=== PATIENT | male | born 1955 | race Caucasian/White ===

== ENCOUNTER → 2017-01-24 15:29 | Outpatient (CLI) | payer MEDICARE | END | disposition home or self-care (01) | LOC: D.CT 15:29 | DX: I73.9 Peripheral vascular disease, unspecified (principal) ==

== ENCOUNTER → 2017-01-30 07:28 | Outpatient (CLI) | payer MEDICARE | END | disposition home or self-care (01) | LOC: D.MRI 07:28 | DX: M25.561 Pain in right knee (principal) ==

== ENCOUNTER 2018-08-27 07:44 | Day surgery (SDC) | payer MEDICARE ==
[~2018-08-27] VITALS: Ht 188 cm; Wt 124.7 kg
[2018-08-27 08:18] LABS: ANION GAP 14.6 mmol/L (8-16); CALCIUM 9.3 mg/dL (8.5-10.1); CARBON DIOXIDE 27.5 mmol/L (21.0-32.0); CREATININE - SERUM 1.3 mg/dL (0.6-1.3); POTASSIUM - SERUM 4.1 mmol/L (3.5-5.1)
[2018-08-27 08:31] VITALS: BP 171/92; Ht 188 cm; Wt 124.7 kg
[2018-08-27 08:31] LABS: HEMATOCRIT 43.7 % (42.0-54.0); HEMOGLOBIN 15.6 g/dL (13.5-17.5); MCH 32.3 pg (26.0-34.0); MCHC 35.7 g/dL (31.0-37.0); MCV 90.5 fL (80.0-100.0); MEAN PLATELET VOLUME 9.7 fL (7.4-10.4); RBC 4.83 10x6/uL (4.20-6.10); RDW 13.3 % (11.5-14.5); WBC 12.5 10x3/uL (4.8-10.8)
[2018-08-27] MEDS ORDERED: LISINOPRIL-HCT1 EAC7 PO (08:46)
[2018-08-27] MEDS ORDERED: JANUMET XR 50-1 EACH PO (08:47)
[2018-08-27] MEDS ORDERED: NORVASC2.5 MG PO (08:48)
[2018-08-27] MEDS ORDERED: LIPITOR20 MG PO (08:49)
--- NOTE | 2018-08-27 14:50 | OP ---
PATIENT NAME: KUSH CAMPBELL MEDICAL RECORD: [id number] :59 LOCATION:D.OPS ADMISSION DATE: SURGEON: MARGIE BRAVO MD DATE OF OPERATION: 08/27/2018 PREOPERATIVE DIAGNOSIS: History of ascending colon polyp. POSTOPERATIVE DIAGNOSIS: History of ascending colon polyp. PROCEDURES: 1. Total colonoscopy to cecum. 2. Hot biopsy forceps polypectomy times 1. SURGEON: Margie Bravo MD FISCAL CLERK: None. BLOOD LOSS: Minimal. ANESTHESIA: IV sedation. COMPLICATIONS: None. The reason for the anesthesia staff being present during the procedure includes the need for airway manipulation, which was necessary during the operative procedure. ENDOSCOPIC COURSE: The patient was conveyed to endoscopy suite electively on 08/27/2018. IV sedation was induced by the anesthesia staff. The patient was placed in the [place] position. Digital rectal examination was performed. A colonoscope was inserted through the anus. It was easily advanced to the cecum. Upon withdrawal, I irrigated and aspirated extensively. The prep was adequate. I utilized normal imaging as well as narrow band imaging. One polyp was noted in the ascending colon and this was removed in its entirety utilizing the hot biopsy forceps polypectomy technique. This was a 1.2 cm flat polyp. I then slowly withdrew the endoscope. I irrigated and aspirated extensively. I dragged the folds. The pullback was greater than a 20-minute pullback. A retroflexed view was obtained in the rectum. The patient has enlarged internal hemorrhoids. I then unretroflexed the scope and removed it under direct vision. I will see the patient in my office in 2-3 weeks. I will plan for the next colonoscopy to take place in the GI lab in 1 year. TRANSINT:[id number] Voice Confirmation ID: [id number] DOCUMENT ID: [id number] MARGIE BRAVO MD at 1450 CC: MALCOLM QUIGLEY MD, MADHAVI KEN MD and HSREYA ESTEVEZ DO [id number] DICTATION DATE: 08/27/18 1138 MUD CLEANER OPERATOR: 08/27/18 1223 [facility] 08/27/18 [place] [address]
--- NOTE | 2018-08-28 11:00 | HP ---
PATIENT: KUSH CAMPBELL MEDICAL RECORD: [id number] ACCOUNT: [id number] LOCATION:[place] : 59 ADMISSION DATE: 08/27/18 PCP: MADHAVI KEN MD HISTORY AND PHYSICAL EXAMINATION CHIEF COMPLAINT: Colon polyp. HISTORY OF PRESENT ILLNESS: The patient has a complex colon polyp involving the ascending colon. It was a flat polyp ranging in size from 2-3 cm. The center was slightly depressed. The patient underwent an endoscopic mucosal resection of the lesion, which was partially removed using a snare. The Rebeca ink was applied for tattooing. The pathology was that of a tubular adenoma with no high-grade dysplasia or malignancy present. He had no rectal bleeding, no abdominal pain. HOME MEDICINES: Norvasc, Lipitor, lisinopril, hydrochlorothiazide, as well as metformin. The patient was on a blood thinner due to some stents in his lower extremities and he has been off blood thinner for some time now. SOCIAL HISTORY: A 84-coeu-hhbh history. PAST MEDICAL AND SURGICAL HISTORY: Hypertension as well as noninsulin dependent diabetes mellitus. ALLERGIES: No known drug allergies. PHYSICAL EXAMINATION: GENERAL: The patient does not appear acutely ill. He does not appear chronically ill. VITAL SIGNS: Reviewed. EARS: External ears appear normal. EYES: Extraocular movements are intact. NECK: Trachea is midline. CHEST: No intercostal retractions. IMPRESSION: History of a tubular adenoma of the ascending colon. PLAN: Colonoscopy. Possible endoscopic mucosal resection, possible polypectomy utilizing argon plasma licensing director. TRANSINT:[id number] Voice Confirmation ID: [id number] DOCUMENT ID: [id number] MARGIE BRAVO MD at 1100 CC: MALCOLM QUIGLEY MD, MADHAVI KEN MD and SHREYA ESTEVEZ DO [id number] DICTATION DATE: 08/27/18 1040 [employer] NETWORK ENGINEER: 08/27/18 1048 [facility] 08/27/18 [place] [id number]
== END 2018-08-27 13:02 | disposition home or self-care (01) ==
LOC: D.OPS 07:44
PROVIDERS: Anesthesiology
DX: D12.2 Benign neoplasm of ascending colon (principal); Z86.010 Personal history of colon polyps; I10 Essential (primary) hypertension; E11.9 Type 2 diabetes mellitus without complications; Z79.84 Long term (current) use of oral hypoglycemic drugs; Z79.899 Other long term (current) drug therapy; Z01.812 Encounter for preprocedural laboratory examination